=== PATIENT | male | born 1955 | race Caucasian/White ===

== ENCOUNTER 2017-03-26 16:08 | Emergency (ER) | payer BC ==
[2017-03-26] MEDS ORDERED: Nitroglycerin 0.4 MG Tab.SL SL ONE (16:43)
--- NOTE | 2017-03-26 16:48 | EDM.PDOC ---
ED HPI GENERAL MEDICAL PROBLEM - General Chief Complaint: Cardiovascular Problem Stated Complaint: BLOOD PRESSURE Time Seen by Provider: 03/26/17 16:33 Source of Information: Reports: Patient, RN Notes Reviewed History Limitations: Reports: No Limitations - History of Present Illness INITIAL COMMENTS - FREE TEXT/NARRATIVE: 62-year-old gentleman presents emergency department day complaint of blood pressure elevation. He was at the eye doctor today and they noticed his blood pressure was elevated he does have a machine at home he had went home rechecked his blood pressure again systolics in the 200s he presents to the emergency department today for further evaluation he has no specific complaints. - Related Data Allergies Allergy/AdvReac Type Severity Reaction Status Date / Time No Known Allergies Allergy Verified 06/12/16 10:47 Home Meds: Home Meds Aspirin 1 tab PO DAILY 06/12/16 [History] Fexofenadine HCl [Norah Allergy] 180 mg PO DAILY 06/12/16 [History] Hydrocodone/Acetaminophen [Hydrocodon-Acetaminophen 5-325] 1 each PO Q4H PRN [History] Losartan Potassium 100 mg PO DAILY 06/12/16 [History] Ranitidine HCl [Acid Assistant Manager Of Operations] 75 mg PO DAILY 06/12/16 [History] Triamterene/Hydrochlorothiazid [Triamterene-HCTZ 37.5-25 MG] 1 tab PO DAILY [History] Metoprolol Succinate 25 mg PO DAILY 03/26/17 [History] Past Medical History Cardiovascular History: Reports: Hypertension Musculoskeletal History: Reports: Other (See Below) Other Musculoskeletal History: bilat shoulder pain - Infectious Disease History Infectious Disease History: Reports: Chicken Pox Social & Family History - Tobacco Use Smoking Status *Q: Never Smoker - Caffeine Use Caffeine Use: Reports: Tea - Recreational Drug Use Recreational Drug Use: No ED ROS GENERAL - Review of Systems Review Of Systems: See Below Constitutional: Reports: No Symptoms HEENT: Reports: No Symptoms Respiratory: Reports: No Symptoms Cardiovascular: Reports: No Symptoms GI/Abdominal: Reports: No Symptoms : Reports: No Symptoms ED EXAM, GENERAL - Physical Exam Exam: See Below Exam Limited By: No Limitations General Appearance: Alert, WD/WN, No Apparent Distress Neck: Normal Inspection, Supple, Non-Tender, Full Range of Motion Respiratory/Chest: No Respiratory Distress, Lungs Clear, Normal Breath Sounds, No Accessory Muscle Use, Chest Non-Tender Cardiovascular: Normal Peripheral Pulses, Regular Rate, Rhythm, No Edema, No Murmur GI/Abdominal: Soft, Non-Tender Course - Vital Signs Last Recorded V/S: Last Vital Signs Temp 97.3 F 03/26/17 16:24 Pulse 87 03/26/17 16:24 Resp 16 03/26/17 16:24 BP 161/109 H 03/26/17 16:50 Pulse Ox 93 L 03/26/17 16:24 - Orders/Labs/Meds Meds: Medications Discontinued Medications Generic Name Dose Route Start Last Admin Trade Name Freq PRN Reason Stop Dose Admin Nitroglycerin 0.4 mg 03/26/17 16:43 03/26/17 16:50 Nitrostat SL 03/26/17 16:44 0.4 mg ONETIME ONE Administration Departure - Departure Time of Disposition: 17:09 Disposition: Home, Self-Care 01 Condition: Good Clinical Impression: Hypertensive urgency Referrals: Farhat Brown MD [Primary Care Provider] - Forms: ED Department Discharge Additional Instructions: Continue with your regular medications, Please followup with your primary care provider in 3-5 days if not better, please call return to the emergency department with worsening of symptoms. - Assessment/Plan Plan: Assessment Acuity = acute Site and laterality = hypertensive urgency complicated in a patient with known history of hypertension Etiology = unclear etiology Manifestations = none Location of injury = Home Lab values = none Plan I did offer him further evaluation including blood work EKG chest x-ray urine he declined at this time he had excellent response to one nitroglycerin he would like to go home rest and he'll follow-up with his primary care if his blood pressure continues to be high This note was dictated using [employer] recognition software please call with any questions on syntax or jerry.
[2017-03-26 17:27] VITALS: BP 151/102
== END 2017-03-26 17:28 | disposition home or self-care (01) ==
LOC: JP.ED 16:08
DX: I16.0 Hypertensive urgency (principal); Z79.82 Long term (current) use of aspirin
CPT/HCPCS: 99283; A9270-GY

== ENCOUNTER 2017-04-19 06:20 | Day surgery (SDC) | payer BC ==
[2017-04-19] MEDS ORDERED: Sodium Chloride 0.9% 1,000 ML IV SCH (07:00)
[2017-04-19] MEDS ORDERED: fentaNYL 100 MCG/2 ML SDV ONE (07:33)
[2017-04-19] MEDS ORDERED: Midazolam 1 MG/ML 2 ML SDV ONE (07:33)
[2017-04-19] MEDS ORDERED: Propofol 200 MG/20 ML SDV ONE (07:33)
[2017-04-19 08:46] VITALS: BP 150/98
--- NOTE | 2017-04-19 15:41 | OR ---
DATE OF PROCEDURE: 04/19/2017 PROCEDURE: Colonoscopy. FINDINGS: Transverse colon polyp, approximately 5 mm, completely removed using cold biopsy forceps. COMPLICATIONS: None. NURSING HOME AIDE: None. PREOPERATIVE DIAGNOSIS: Screening colonoscopy. POSTOPERATIVE DIAGNOSIS: Screening colonoscopy. RISKS: Risks, benefits, alternatives, and limitations including, but not limited to infection, bleeding, and perforation were explained to the patient, they wished to proceed. PROCEDURE IN DETAIL: The patient was placed in left lateral decubitus position. Digital rectal exam was performed without abnormality. The scope was introduced and advanced atraumatically to the ileocecal valve. The scope was brought back to the ascending, transverse, descending colon, and retroflexed. No evidence of old or new blood. There was a single polyp in the transverse colon, which was completely removed using cold biopsy forceps. No other abnormalities were noted. Normal retroflex. No diverticulosis. No mass. No colitis. The patient tolerated the procedure well. Conrad Maciel MD /[id number]
== END 2017-04-19 09:07 | disposition home or self-care (01) ==
LOC: JP.SDS 06:20
PROVIDERS: ATTEND Surgery
DX: Z12.11 Encounter for screening for malignant neoplasm of colon (principal); D12.3 Benign neoplasm of transverse colon; I10 Essential (primary) hypertension; Z88.8 Allergy status to other drugs, medicaments and biological substances
CPT/HCPCS: 45380; J2250; J2704; J3010; J7040; 88305

== ENCOUNTER 2018-06-26 05:43 | Day surgery (SDC) | payer BC ==
[2018-06-26] MEDS ORDERED: Lactated Ringers 1,000 ML IV SCH (06:00)
[2018-06-26] MEDS ORDERED: Scopolamine 1.5 MG Transdermal Patch TOP SCH (06:00)
[2018-06-26] MEDS ORDERED: ceFAZolin 2 GM in Premix Bag 1 BAG IV ONE (06:00)
[2018-06-26] MEDS ORDERED: Nozin Nasal Sanitizer NASBOTH SCH (06:00)
[2018-06-26] MEDS ORDERED: Povidone-Iodine 10% Soln 118.25 ML Bottle ONE (07:00)
[2018-06-26] MEDS ORDERED: fentaNYL 250 MCG/5 ML SDV ONE (07:12)
[2018-06-26] MEDS ORDERED: Midazolam 1 MG/ML 2 ML SDV ONE (07:12)
[2018-06-26] MEDS ORDERED: Neostigmine Methylsulfate 1 MG/ML 5 ML Syringe ONE (07:13)
[2018-06-26] MEDS ORDERED: Propofol 200 MG/20 ML SDV ONE (07:13)
[2018-06-26] MEDS ORDERED: Dexamethasone 4 MG/ML SDV ONE (07:13)
[2018-06-26] MEDS ORDERED: Glycopyrrolate 0.2 MG/ML 5 ML MDV ONE (07:13)
[2018-06-26] MEDS ORDERED: Ondansetron 4 MG/2 ML SDV ONE (07:13)
[2018-06-26] MEDS ORDERED: Rocuronium 50 MG/5 ML Vial ONE (07:13)
[2018-06-26] MEDS ORDERED: Bupivacaine 0.5% 30 ML SDV ONE (07:18)
[2018-06-26] MEDS ORDERED: Lidocaine 1% 2 ML ONE (07:18)
[2018-06-26] MEDS ORDERED: ePHEDrine 50 MG/ML SDV ONE (08:15)
[2018-06-26] MEDS ORDERED: Acetaminophen/HYDROcodone 325-5 MG Tab PO PRN (09:28)
[2018-06-26] MEDS ORDERED: Acetaminophen 325 MG Tab PO PRN (09:28)
[2018-06-26] MEDS ORDERED: Morphine 2 MG/ML Syringe IVPUSH PRN (09:36)
[2018-06-26] MEDS: Sodium Chloride 0.9% 1,000 ML IV SCH ×2 (11:07→19:14)
[2018-06-26] MEDS: ceFAZolin 1 GM in Premix Bag 1 BAG IV SCH ×2 (14:04→21:01)
--- NOTE | 2018-06-26 17:12 | OR ---
DATE OF PROCEDURE: 06/26/2018 PREOPERATIVE DIAGNOSIS: Osteoarthritis, right shoulder. POSTOPERATIVE DIAGNOSIS: Osteoarthritis, right shoulder. PROCEDURE PERFORMED: Right shoulder hemiarthroplasty using Cassandra trabecular metal stem, size 10 with a 23 mm thickness humeral head. ANESTHESIA: Interscalene block and general. INDICATIONS: Zeus is a 63-year-old gentleman with a history of progressive pain in the right shoulder for the past couple of years. He has failed conservative treatment. X-rays reveal joint space collapse and osteophyte formation, inferior aspect of the humeral head. He does not have significant deformity or bone loss on the glenoid. He now presents for right hemiarthroplasty with possible total shoulder arthroplasty. The risks, benefits, and potential complications of continued conservative treatment, hemiarthroplasty, and total shoulder arthroplasty were discussed. He agrees to proceed. PROCEDURE IN DETAIL: After adequate general anesthesia was obtained, the patient was placed in a beach chair position. Right shoulder and arm were prepped and draped in a sterile fashion. Anterior incision was made, carried down through the subcutaneous tissues. The cephalic vein was identified and retracted laterally with the deltoid. The clavipectoral fascia was divided and a self-retaining retractor was placed beneath the deltoid and the conjoined tendon. The bicipital groove was identified and the subscapularis was then divided approximately 1 cm from its insertion. The sutures were placed in the edge and used to retract the tendon medially. The capsule was released inferiorly. This revealed the inferior osteophyte. This was removed with a rongeur. The biceps tendon was tenodesed in the groove with #1 Ethibond. The arm was then externally rotated presenting the humeral head. Biceps tendon was divided at the top of the bicipital groove and the remaining portion excised. Cartilage loss in the central portion of the humeral head was identified. A starting awl was used to enter the humeral canal. Canal was then sequentially reamed to 10 mm. The last reamer was left in place and the cutting jig was then secured. Humeral head was then cut with an oscillating saw. The humerus was retracted posteriorly and the glenoid was inspected. This revealed concentric wear with no significant deformity. Minimal degenerative changes of the labrum. Decision was made not to proceed with a glenoid component. The joint was irrigated. Attention was then returned to the humerus. The metaphyseal reamer was then utilized. The trial stem was placed with excellent fit and position. The offset trial head was utilized 23 mm thickness. This provided good coverage of the proximal humerus and excellent balance within the glenoid with approximately 50% glide anterior-posterior. The trials were then removed. The humerus was irrigated. The trabecular metal stem was press-fit into place with good position. The final humeral head replacement was tapped onto the taper. This again reduced and taken through range of motion. It was very stable within the glenoid with smooth motion. The subscapularis was then repaired with #1 Ethibond in interrupted fashion and oversewn with a running suture. Shoulder was irrigated with a dilute solution of Betadine. The skin was then closed with 2-0 Vicryl and a running 3-0 Monocryl. Steri-Strips were applied. Sterile dressing was then placed. Patient tolerated the procedure well. There were no complications, and he was taken from the operating room in a stable condition. Tuan Clark MD /[id number]
[2018-06-26] MEDS: Nozin Nasal Sanitizer NASBOTH SCH (20:18)
[2018-06-26] MEDS: Acetaminophen/oxyCODONE 325-5 MG Tab PO PRN (21:01)
[2018-06-27] MEDS: Acetaminophen/oxyCODONE 325-5 MG Tab PO PRN (04:46)
[2018-06-27] MEDS: ceFAZolin 1 GM in Premix Bag 1 BAG IV SCH (06:04)
[2018-06-27] MEDS ORDERED: Pantoprazole 40 MG Tab.CR PO SCH (07:30)
[2018-06-27 07:34] VITALS: BP 113/69
[2018-06-27] MEDS ORDERED: Metoprolol Succinate 50 MG Tab.ER PO SCH (09:00)
[2018-06-27] MEDS ORDERED: Fluticasone Propionate Nasal Spray 16 GM Bottle NASBOTH SCH (09:00)
[2018-06-27] MEDS ORDERED: Aspirin 81 MG Tab.Chew PO SCH (09:00)
[2018-06-27] MEDS ORDERED: Losartan 50 MG Tab PO SCH (09:00)
[2018-06-27] MEDS: Nozin Nasal Sanitizer NASBOTH SCH (09:48)
--- NOTE | 2018-06-27 10:37 | CRLCR ---
Indication: Postop right shoulder hemiarthroplasty Technique: One-view right shoulder Comparison: May 30, 2018 Findings: Postoperative changes of right shoulder hemiarthroplasty placement without fracture or loosening. Alignment normal. Intact visualized ribs. Clear right lung. Impression: Intact right shoulder hemiarthroplasty hardware. Dictated by Farhat Rodriguez MD @ Jun 27 2018 10:33AM Signed by Dr. Farhat Rodriguez @ Jun 27 2018 10:35AM
== END 2018-06-27 10:26 | disposition home or self-care (01) ==
LOC: UNDOADMIN 05:43 → JP.SDSSCHI 05:43 → JP.SDS 05:43 → EDSTATUS 07:30 → JP.MS 10:10 → JP.SDSSCHI 10:10 → JP.MS 10:10 → UNDODISIN 06-27 10:26 → JP.SDS 06-27 10:26
PROVIDERS: ATTEND Specialist
DX: M19.011 Primary osteoarthritis, right shoulder (principal); I10 Essential (primary) hypertension; E78.5 Hyperlipidemia, unspecified; F32.9 Major depressive disorder, single episode, unspecified; K21.9 Gastro-esophageal reflux disease without esophagitis; M10.9 Gout, unspecified; Z79.82 Long term (current) use of aspirin; Z79.899 Other long term (current) drug therapy
CPT/HCPCS: 23470; 73020; 97110; 97161; 97165; 97530; 97535; A9270; J0690; J1100; J2001; J2250; J2405; J2704; J2710; J3010; J3490; J7030; J7120; C1776

== ENCOUNTER 2020-08-26 06:22 | Day surgery (SDC) | payer BC ==
[2020-08-26] MEDS ORDERED: Sodium Chloride 0.9% 1,000 ML IV SCH (07:15)
[2020-08-26] MEDS ORDERED: Propofol 200 MG/20 ML SDV ONE (07:45)
[2020-08-26] MEDS ORDERED: Midazolam 1 MG/ML 2 ML SDV ONE (07:45)
[2020-08-26] MEDS ORDERED: fentaNYL 100 MCG/2 ML SDV ONE (07:45)
[2020-08-26 08:55] VITALS: BP 153/85; PULSE 62
--- NOTE | 2020-08-26 12:16 | OR ---
DATE OF PROCEDURE: 08/26/2020 SURGEON: Conrad Maciel MD PROCEDURE: Colonoscopy. FINDINGS: 1. Cecal polyp, approximately 5 mm, completely removed using cold biopsy forceps. 2. Ascending colon polyp, approximately 8 mm, completely removed using hot snare wire device. COMPLICATIONS: None. CUSTOMS CONSULTANT: None. PREOPERATIVE DIAGNOSIS: Screening colonoscopy. POSTOPERATIVE DIAGNOSIS: Screening colonoscopy. RISKS: Risks, benefits, alternatives, and limitations including, but not limited to infection, bleeding, perforation, false positives, false negatives were explained to the patient and he wished to proceed. PROCEDURE IN DETAIL: The patient was placed in left lateral decubitus position. Digital rectal exam was performed without abnormality. Scope was introduced atraumatically to the ileocecal valve. A photo was taken of the appendiceal orifice. Within the cecum itself, the first polyp was identified and completely removed as described above. The scope was brought back to the remainder of the colon and the second polyp was removed as described above. No other abnormalities noted. No diverticulosis. No old or new blood. No colitis. No abnormalities on retroflexion. Greater than 8 minutes was spent removing the scope. The prep was acceptable, approximately 95% luminal surface could be seen. The patient tolerated procedure well. Conrad Maciel MD /[id number]
== END 2020-08-26 09:10 | disposition home or self-care (01) ==
LOC: JP.SDS 06:22
PROVIDERS: ATTEND Surgery
DX: Z12.11 Encounter for screening for malignant neoplasm of colon (principal); D12.2 Benign neoplasm of ascending colon; D12.0 Benign neoplasm of cecum; I10 Essential (primary) hypertension; K21.9 Gastro-esophageal reflux disease without esophagitis; E78.5 Hyperlipidemia, unspecified; Z86.010 Personal history of colon polyps; Z88.8 Allergy status to other drugs, medicaments and biological substances
CPT/HCPCS: 45380; 45385; J2250; J2704; J3010; J7030

== ENCOUNTER 2023-09-25 06:37 | Day surgery (SDC) | payer MEDICARE, BC ==
[2023-09-25] MEDS: Sodium Chloride 0.9% 1,000 ML IV SCH (07:20)
[2023-09-25] MEDS ORDERED: fentaNYL 100 MCG/2 ML SDV ONE (07:31)
[2023-09-25] MEDS ORDERED: Propofol 200 MG/20 ML SDV ONE (07:31)
[2023-09-25 08:57] VITALS: BP 121/88; PULSE 60
== END 2023-09-25 09:25 | disposition home or self-care (01) ==
LOC: JP.SDS 06:37
PROVIDERS: ATTEND Surgery
DX: Z12.11 Encounter for screening for malignant neoplasm of colon (principal); D12.0 Benign neoplasm of cecum; D12.2 Benign neoplasm of ascending colon; I10 Essential (primary) hypertension; E78.5 Hyperlipidemia, unspecified; F32.A Depression, unspecified
CPT/HCPCS: 00811-QZ; 88305; J2704; J3010; J7030